=== PATIENT | male | born 1950 | race Caucasian/White ===

== ENCOUNTER → 2018-03-29 | Outpatient (CLI) | payer OTHER | END | disposition home or self-care (01) | LOC: RAH 12:51 | PROVIDERS: ATTEND Neurological Surgery | DX: M47.812 Spondylosis without myelopathy or radiculopathy, cervical region (principal); M50.123 Cervical disc disorder at C6-C7 level with radiculopathy; M48.02 Spinal stenosis, cervical region; M25.78 Osteophyte, vertebrae; Z86.73 Personal history of transient ischemic attack (TIA), and cerebral infarction without residual deficits | CPT/HCPCS: 70551; 72141 ==

== ENCOUNTER → 2018-04-13 | Outpatient (CLI) | payer OTHER | END | disposition home or self-care (01) | LOC: RAH 09:32 | PROVIDERS: ATTEND Family Medicine | DX: G45.9 Transient cerebral ischemic attack, unspecified (principal); I10 Essential (primary) hypertension | CPT/HCPCS: 93306; 93880 ==

== ENCOUNTER 2018-07-05 05:58 | Day surgery (SDC) | payer OTHER ==
[2018-07-03 11:50] VITALS: BP 183/84
--- NOTE | 2018-07-03 12:05 | NUR ---
No Blood Products informed Dr Belle/Suma of no blood products
[2018-07-03 12:18] LABS: BASOPHILS % (AUTO) 0.7 % (0.0-5.0); LYMPHOCYTES % (AUTO) 23.2 % (21.0-51.0); MEAN CORPUSCULAR HGB CONC 34.7 g/dL (32.0-36.0); MEAN CORPUSCULAR VOLUME 92.2 fL (79-99); MONOCYTES % (AUTO) 8.2 % (3.0-13.0); NEUTROPHILS % (AUTO) 65.9 % (40.0-77.0); PLATELET COUNT (AUTO) 216 K/uL (130-400); RED BLOOD CELL COUNT(AUTO) 4.98 MIL/uL (4.50-6.20); RED CELL DISTRIBUTION WIDTH 12.9 % (11.0-15.5); WHITE BLOOD COUNT (AUTO) 7.6 K/uL (4.8-10.8)
[2018-07-03 12:32] LABS: CREATININE 0.9 mg/dL (0.5-1.5); POTASSIUM 4.6 mmol/L (3.5-5.1)
[2018-07-03 12:33] LABS: INR 0.99 (0.85-1.15); PARTIAL THROMBOPLASTIN TIME 29.5 SEC (26.3-35.5); PROTHROMBIN TIME 10.4 SEC (9.6-11.6)
[2018-07-03 12:41] LABS: APPEARANCE,URINE Clear (CLEAR); BILIRUBIN,URINE Negative (NEGATIVE); COLOR,URINE Yellow (YELLOW); GLUCOSE, URINE (UA) Negative (NEGATIVE); KETONES,URINE Negative (NEGATIVE); LEUKOCYTE ESTERASE ,URINE Negative (NEGATIVE); NITRATE,URINE Negative (NEGATIVE); OCCULT BLOOD,URINE Negative (NEGATIVE); PROTEIN,URINE Negative (NEGATIVE)
--- NOTE | 2018-07-03 13:00 | NUR ---
Instructions I called patient to let him know he forgot his yellow day patient pre instructions, he stated that he understands to not have anything after midnight night before, no acholic beverages for 24 hours before, take a shower before he comes and to take his medication on his schedule...
[2018-07-05] VITALS (18 sets, daily range): BP systolic 149–184; BP diastolic 65–101
[~2018-07-05] VITALS: Ht 185.4 cm; Wt 116.8 kg
[~2018-07-05 05:58] MED LIST: ASPI-555 PO; ATOR10TA69 PO; LOSA100T58 PO
[2018-07-05] MEDS ORDERED: SODIUM CHLORIDE 0.9% 1000ML 1,000 ML IV ONE (06:20)
[2018-07-05] MEDS ORDERED: LIDOCAINE HCL 2% 20ML ONE (09:58)
[2018-07-05] MEDS ORDERED: IOHEXOL 350 MG/ML 100ML INFUS..BTL IV ONE (09:58)
[2018-07-05] MEDS ORDERED: NITROGLYCERIN 5 MG/ML 10 ML VIAL IV ONE (09:58)
[2018-07-05] MEDS ORDERED: IOHEXOL-350 50ML VIAL IV ONE ×2 (09:58→10:41)
[2018-07-05] MEDS ORDERED: LABETALOL 20 MG/4 ML DISP.SYRIN IV ONE (10:27)
[2018-07-05] MEDS ORDERED: MIDAZOLAM HCL 1 MG/ML 2ML VIAL ONE (10:30)
[2018-07-05] MEDS ORDERED: SODIUM CHLORIDE 0.9% 1000ML 1,000 ML IV SCH ×2 (10:56→11:17)
--- NOTE | 2018-07-05 13:56 | NUR ---
At Dr. Belle's request, 07/20/18 appointment canceled and pt rescheduled for follow-up appointment on 08/14/18 at 10:[address] Belle wanted to give pt the opportunity to have his surgery 1st.
--- NOTE | 2018-07-05 14:30 | NUR ---
Pt's blood pressure went from 149/73 at 13:00 to 173/87. quality control lab tech called and Dr. Belle notified of pt's increase in blood pressure. Dr. Belle gave orders for 50 mg of Losartan to be given PO now.
[2018-07-05] MEDS ORDERED: LOSARTAN 50 MG TABLET PO SCH (14:45)
--- NOTE | 2018-07-05 15:00 | NUR ---
Spoke to Dr. Belle directly in regards to when pt was clear to go home or to see if he wanted to put any parameters on an acceptable blood pressure as pt was due to go home at 15:00 prior to elevated blood pressure. Dr. Belle stated he had another pt to see, but that he would give some time for the Losartan to work and may consider writing a prescription .
--- NOTE | 2018-07-05 16:00 | NUR ---
About an hour has passed since pt received Losartan. Pt's blood pressure now: 149/93. Pt anxious to go home and reports back pain is getting bad. Attempted to page Dr. Belle for back pain and now for blood pressure with no return calls.
--- NOTE | 2018-07-05 16:15 | NUR ---
Pt reports severe lower back pain. Dr. Belle paged twice prior to reaching [facility] without any return of call. Requested Tylenol with Codeine for pt's back pain. Orders given.
[2018-07-05] MEDS ORDERED: ACETAMINOPHEN-CODEINE 300/30MG TAB ONE (16:18)
--- NOTE | 2018-07-05 17:15 | NUR ---
Pt reports relief of back pain. Blood pressure currently 158/84. Now pain at scale of 2 to 3. Pt very anxious to go home. Still unable to reach Dr. Belle. Will continue to reach him. Addendum: 07/05/18 at 1851 by NIRAJ HERNANDES RN RN JATINDER Huston, day camp unit leader was made aware at this time at 17:15 that I have unable to reach Dr. Belle.
[2018-07-05] MEDS ORDERED: ACETAMINOPHEN-CODEINE 300/30MG TAB PO ONE (17:20)
--- NOTE | 2018-07-05 17:20 | NUR ---
Dr. Belle reached. Current blood pressure reported to Dr. Belle. Dr Belle was informed that pt was taking 100 mg of Losartan in the evening. Dr. Belle gave instructions to tell pt to take blood pressure medication in the morning and not at night. Pt given thorough instructions on when to take Losartan so that the maximum benefits would occur during the day. Pt and spouse verbalized understanding.
--- NOTE | 2018-07-05 17:35 | NUR ---
After IV removal, PT was instructed to watch their IV site for any signs of bleeding. As pt was getting dressed, pt noticed that IV was swelling up. Large hematoma noted, firm pressure applied for 10 mins. Pressure dressing applied with gauze and Kerlix. Pt instructed to watch for further signs of bleeding. Pt also instructed to loosen bandage if became to tight or developed signs of decreased circulation, such as numbness, tingling or color change.
--- NOTE | 2018-07-05 17:45 | NUR ---
Pt discharged home. Tolerating fluids, solid food well, ambulating well. Denies any nausea, dizziness, or severe pain. Site to right groin remains soft, non-tender with no signs of bleeding. Pt reminded of emergency and routine care of groin site. Pt reminded to start taking Losartan in the morning. Pt and denies any further questions at this time.
--- NOTE | 2018-07-05 18:43 | NUR ---
JATINDER Huston, community marketing coordinator notified that I was tanvir Addendum: 07/05/18 at 1851 by NIRAJ HERNANDES RN RN Please disregard, note, entered in wrong time.
== END 2018-07-05 17:45 | disposition home or self-care (01) ==
LOC: DAH 05:58
PROVIDERS: ATTEND Internal Medicine Cardiovascular Disease
DX: I25.10 Atherosclerotic heart disease of native coronary artery without angina pectoris (principal); I47.2 Ventricular tachycardia; I48.91 Unspecified atrial fibrillation; G47.30 Sleep apnea, unspecified; G47.33 Obstructive sleep apnea (adult) (pediatric); Z68.35 Body mass index [BMI] 35.0-35.9, adult; I11.0 Hypertensive heart disease with heart failure; Z86.73 Personal history of transient ischemic attack (TIA), and cerebral infarction without residual deficits; E78.5 Hyperlipidemia, unspecified; Z98.890 Other specified postprocedural states; Z79.899 Other long term (current) drug therapy; Z82.49 Family history of ischemic heart disease and other diseases of the circulatory system; Z88.8 Allergy status to other drugs, medicaments and biological substances; Z79.01 Long term (current) use of anticoagulants
CPT/HCPCS: 36415; 71045; 80048; 81003; 85025; 85610; 85730; 93005; 93458; A4606; C1760; C1894; J1644; J2250; J3490 ×2; J7030; Q9965; Q9967 ×2; 99156; 99157

== ENCOUNTER 2018-08-21 05:58 | Observation (INO) | payer OTHER ==
[2018-08-17 09:44] LABS: BASOPHILS % (AUTO) 0.9 % (0.0-5.0); EOSINOPHILS % (AUTO) 3.2 % (0.0-8.0); HEMATOCRIT 44.9 % (42-54); LYMPHOCYTES % (AUTO) 21.8 % (21.0-51.0); MEAN CORPUSCULAR HEMOGLOBIN 31.4 pg (27.0-33.0); MEAN CORPUSCULAR HGB CONC 34.2 g/dL (32.0-36.0); MEAN CORPUSCULAR VOLUME 91.7 fL (79-99); MONOCYTES % (AUTO) 7.8 % (3.0-13.0); NEUTROPHILS % (AUTO) 66.3 % (40.0-77.0); PLATELET COUNT (AUTO) 210 K/uL (130-400); RED BLOOD CELL COUNT(AUTO) 4.89 MIL/uL (4.50-6.20); WHITE BLOOD COUNT (AUTO) 6.7 K/uL (4.8-10.8)
[2018-08-17 09:57] LABS: CREATININE 0.9 mg/dL (0.5-1.5); POTASSIUM 4.5 mmol/L (3.5-5.1)
[2018-08-17 10:08] VITALS: BP 161/79
--- NOTE | 2018-08-17 10:36 | NUR ---
NOTE DR HILLS HAS BEEN MADE OF PATIENTS REFUSAL OF BLOOD AND BLOOD PRODUCTS. NO FURTHER ORDERS
--- NOTE | 2018-08-20 13:00 | NUR ---
CLARIFICATION ON H&P/ORDERS DR. REINIER URBAN STAFF NOTIFIED THAT PT'S H&P STATES LUMBAR LAMINECTOMY L4,L5, S1, ORDERS STATES L4, L5 ONLY. PER DR. REINIER URBAN WILL MAKE CORRECTION DOS, FLAG H&P.
[~2018-08-21] VITALS: Ht 185.4 cm; Wt 117.1 kg
[2018-08-21] VITALS (19 sets, daily range): BP systolic 133–174; BP diastolic 64–92
[~2018-08-21 05:58] MED LIST changes: -LOSA100T58 PO; +LOSA25TA41 PO
[2018-08-21] MEDS ORDERED: BUPIVACAINE/EPI/PF 0.25% 50 ML VIAL ONE (06:35)
[2018-08-21] MEDS ORDERED: THROMBIN-JMI 20000 UNIT KIT TP ONE (06:36)
[2018-08-21] MEDS ORDERED: DURAMORPH PF1 MG/ML 10ML AMP IV ONE (06:36)
[2018-08-21] MEDS ORDERED: BACITRACIN 50,000 UNIT VIAL ONE (06:36)
[2018-08-21] MEDS ORDERED: LACTATED RINGERS 1000ML 1,000 ML IV ONE (06:47)
[2018-08-21] MEDS: CEFAZOLIN SODIUM 1 GM VIAL IVP PRN ×2 (07:20→09:23)
[2018-08-21] MEDS ORDERED: LIDOCAINE PF 2% 5ML ABBOJECT ONE (07:57)
[2018-08-21] MEDS ORDERED: SUCCINYLCHOLINE 200MG/10ML SYR ONE (07:57)
[2018-08-21] MEDS ORDERED: GLYCOPYRROLATE 1 MG/5 ML SYRINGE ONE (07:58)
[2018-08-21] MEDS ORDERED: NEOSTIGMINE 5MG/5ML SYR IV ONE (07:58)
[2018-08-21] MEDS ORDERED: PROPOFOL 10 MG/ML 20ML VIAL IV ONE (07:58)
[2018-08-21] MEDS ORDERED: MIDAZOLAM HCL 1 MG/ML 2ML VIAL ONE (07:58)
[2018-08-21] MEDS ORDERED: DEXAMETHASONE SOD PHOSPHATE 10MG/ML 1ML VIAL ONE (07:58)
[2018-08-21] MEDS ORDERED: ONDANSETRON HCL 4 MG/2 ML VIAL ONE (07:59)
[2018-08-21] MEDS ORDERED: FENTANYL CITRATE PF 50 MCG/1 ML 2ML VIAL ONE ×3 (07:59→11:07)
[2018-08-21] MEDS ORDERED: ROCURONIUM 10MG/1ML SYR 10 MG/ML ML ONE (07:59)
[2018-08-21] MEDS ORDERED: LIDOCAINE HCL 4% LTA SOL 4 ML VIAL ONE (08:02)
[2018-08-21] MEDS ORDERED: EPHEDRINE SULFATE 50 MG/ML AMPULE ONE (08:10)
[2018-08-21] MEDS ORDERED: METOCLOPRAMIDE 10 MG/2 ML VIAL ONE (09:36)
[2018-08-21] MEDS ORDERED: ESMOLOL HCL 10 MG/ML 10 ML VIAL ONE (09:39)
[2018-08-21] MEDS ORDERED: MORPHINE SULFATE 2 MG/ML 1ML SYG IVP PRN (12:00)
[2018-08-21] MEDS ORDERED: HYDROCODONE/ACETAMINOPHEN 5/325 MG TAB PO PRN (12:00)
[2018-08-21] MEDS ORDERED: PROMETHAZINE HCL 25 MG/ML 1ML AMPULE IM PRN (12:00)
[2018-08-21] MEDS ORDERED: SODIUM CHLORIDE 0.9% 10 ML VIAL IVP PRN (12:00)
[2018-08-21] MEDS ORDERED: MEPERIDINE-PF 25 MG/ML SYG ONE (12:41)
--- NOTE | 2018-08-21 13:10 | NUR ---
POST SURGERY PATIENT RECEIVED FROM PACU VIA HOSPITAL BED IN STABLE CONDITION. ORIENTED TO ROOM AND USE OF CALL LIGHT. BED IS IN LOWEST POSITION AND LOCKED. HE IS FULLY AWAKE AND IN NO APPARENT DISTRESS. POST OP V/S INITIATED. DRESSING TO LOWER BACK IS DRY AND INTACT. TIGIST DRAIN IS IN PLACE AND NOT COMPRESSED. WILL COMPRESS AT 1600 PER MD ORDERS. WILL CONTINUE TO MONITOR.
[2018-08-21] MEDS: DEXAMETHASONE SOD PHOSPHATE 4 MG/ML 1ML VIAL IVP SCH ×2 (13:38→18:50)
[2018-08-21] MEDS: LACTATED RINGERS 1000ML 1,000 ML IV SCH (13:38)
[2018-08-21] MEDS ORDERED: CEFAZOLIN SODIUM 1 GM VIAL IVP SCH (17:00)
[2018-08-21] MEDS ORDERED: DiphenhydrAMINE HCL 50 MG/ML VIAL IV PRN (20:00)
[2018-08-21] MEDS ORDERED: ATORVASTATIN CALCIUM 10 MG TABLET PO SCH (21:00)
[2018-08-21] MEDS ORDERED: ASPIRIN 81MG TAB.CHEW PO SCH (21:00)
[2018-08-22] MEDS: DEXAMETHASONE SOD PHOSPHATE 4 MG/ML 1ML VIAL IVP SCH (00:29)
[2018-08-22] MEDS: LACTATED RINGERS 1000ML 1,000 ML IV SCH (01:02)
[2018-08-22 03:42] VITALS: BP 126/73
[2018-08-22 07:52] VITALS: BP 142/72
[2018-08-22] MEDS ORDERED: LOSARTAN 50 MG TABLET PO SCH (09:00)
--- NOTE | 2018-08-22 10:30 | NUR ---
DISCHARGE DISCHARGE TEACHING DONE WITH PATIENT USING TEACHBACK METHOD, VERBALIZED UNDERSTANDING. NO NOTED SOB OR DISTRESS. PT AWARE OF NEW PRESCRIPTION FOR TRAMADOL, VERBALIZED UNDERSTANDING OF ADMINISTRATION. PT AWARE OF DR. HILLS APPOINTMENT AND STAPLE REMOVAL KIT GIVEN TO PATIENT TO TAKE TO APPOINTMENT. TIGIST REMOVED, CATH TIP INTACT, MEASURING 16CM. INCISION AND DRESSING CARE INSTRUCTIONS REVIEWED WITH PATIENT, VERBALIZED UNDERSTANDING. IV REMOVED, CATH TIP INTACT.PENDING TO BE TRANSFERRED OUT VIA PRIVATE VEHICLE.
== END 2018-08-22 11:08 | disposition home or self-care (01) ==
LOC: DAH 05:58 → DAHIP 05:59 → 4AH 13:04
PROVIDERS: ADMIT Neurological Surgery; ATTEND Neurological Surgery
DX: M48.07 Spinal stenosis, lumbosacral region (principal); G47.30 Sleep apnea, unspecified; I47.2 Ventricular tachycardia; M25.78 Osteophyte, vertebrae; M54.30 Sciatica, unspecified side; G47.10 Hypersomnia, unspecified; I11.9 Hypertensive heart disease without heart failure; G47.33 Obstructive sleep apnea (adult) (pediatric); E78.5 Hyperlipidemia, unspecified; Z82.49 Family history of ischemic heart disease and other diseases of the circulatory system; Z88.8 Allergy status to other drugs, medicaments and biological substances; Z86.73 Personal history of transient ischemic attack (TIA), and cerebral infarction without residual deficits; Z79.899 Other long term (current) drug therapy
CPT/HCPCS: 36415; 63047; 63048; 72020; 80048; 85025; 96374; 96375 ×2; 96376 ×2; A4218 ×2; A4344; A4510; A4649 ×4; G0378 ×29; J0330; J0690 ×2; J1100 ×4; J2001; J2175; J2250; J2274; J2405; J2704; J2710; J2765; J3010 ×3; J3490 ×4; J7030; J7120 ×3

== ENCOUNTER → 2022-01-20 | Outpatient (CLI) | payer OTHER ==
[~2022-01-20] MED LIST changes: -ASPI-555 PO; +ASPI-556 PO
== END | disposition home or self-care (01) ==
LOC: RAH 13:28
PROVIDERS: ATTEND Family Medicine
DX: M51.17 Intervertebral disc disorders with radiculopathy, lumbosacral region (principal); M48.061 Spinal stenosis, lumbar region without neurogenic claudication
CPT/HCPCS: 72148

== ENCOUNTER 2022-04-11 09:00 | Observation (INO) | payer OTHER ==
[~2022-04-11] VITALS: Ht 182.9 cm; Wt 114.7 kg
[2022-04-11 10:19] VITALS: BP 140/80
[2022-04-11] MEDS ORDERED: LOSA100T58 PO (10:35)
[2022-04-12] VITALS (26 sets, daily range): BP systolic 109–152; BP diastolic 49–81
[2022-04-12] MEDS ORDERED: CEFAZOLIN SODIUM 1 GM VIAL ONE ×2 (04:40→11:01)
[2022-04-12] MEDS ORDERED: BUPIVACAINE/EPI/PF 0.25% 10ML VIAL IJ ONE ×2 (04:40→05:29)
[2022-04-12] MEDS ORDERED: MORPHINE PF 100MG/10ML AMP IV ONE (04:42)
[2022-04-12] MEDS ORDERED: THROMBIN-JMI 5000 UNIT/VIAL TP ONE (04:44)
[2022-04-12] MEDS ORDERED: BUPIVACAINE/PF 0.5% 30ML VIAL ONE (05:17)
[2022-04-12] MEDS ORDERED: BUPIVACAINE/EPI/PF 0.5% 30ML VIAL IJ ONE (05:29)
[2022-04-12] MEDS: CEFAZOLIN SODIUM 1 GM VIAL IVP SCH ×3 (06:00→11:30)
[2022-04-12] MEDS ORDERED: LACTATED RINGERS 1000ML 1,000 ML IV ONE (06:26)
[2022-04-12] MEDS ORDERED: LIDOCAINE PF 100MG/5ML (2%) SYRINGE 5ML ONE (06:55)
[2022-04-12] MEDS ORDERED: SUCCINYLCHOLINE CHLORIDE 20 MG/ML 10 ML VIAL ONE (06:55)
[2022-04-12] MEDS ORDERED: ROCURONIUM 10MG/1ML SYR 10 MG/ML ML ONE ×2 (06:56→07:43)
[2022-04-12] MEDS ORDERED: NEOSTIGMINE 5MG/5ML SYR IV ONE (06:56)
[2022-04-12] MEDS ORDERED: ONDANSETRON 4MG INJ ONE ×3 (06:56→12:24)
[2022-04-12] MEDS ORDERED: PROPOFOL 10 MG/ML 20ML VIAL IV ONE ×2 (06:56→06:57)
[2022-04-12] MEDS ORDERED: DEXAMETHASONE SOD PHOSPHATE 10MG/ML 1ML VIAL ONE ×2 (06:56→06:59)
[2022-04-12] MEDS ORDERED: MIDAZOLAM HCL 1 MG/ML 2ML VIAL ONE (06:56)
[2022-04-12] MEDS ORDERED: GLYCOPYRROLATE 1 MG/5 ML SYRINGE ONE (06:56)
[2022-04-12] MEDS ORDERED: FENTANYL CITRATE PF 50 MCG/1 ML 2ML VIAL ONE ×3 (06:57→11:06)
[2022-04-12] MEDS ORDERED: PHENYLEPHRINE HCL 10 MG/ML 1ML VIAL IV ONE (07:03)
[2022-04-12] MEDS: THROMBIN-JMI 5000 UNIT/VIAL TP SCH ×2 (07:30→08:15)
[2022-04-12] MEDS ORDERED: ARTIFICIAL TEARS 3.5 GM OINTMENT ONE (08:00)
[2022-04-12] MEDS ORDERED: OXYMETAZOLINE HCL SPRAY 15 ML BOTTLE ONE (08:00)
[2022-04-12] MEDS ORDERED: THROMBIN-JMI 5000 UNIT/VIAL TP SCH (08:00)
[2022-04-12] MEDS: DEXAMETHASONE SOD PHOSPHATE 4 MG/ML 1ML VIAL IVP SCH ×2 (12:00→18:21)
[2022-04-12] MEDS ORDERED: 0.9%NACL 10ML VIAL IVP PRN (12:00)
[2022-04-12] MEDS: LACTATED RINGERS 1000ML 1,000 ML IV SCH (12:00)
[2022-04-12] MEDS ORDERED: MORPHINE 2 MG SYG IVP PRN (12:00)
[2022-04-12] MEDS: CEFAZOLIN SODIUM 2 GM VIAL IVP SCH ×2 (12:00→21:15)
[2022-04-12] MEDS ORDERED: PROMETHAZINE HCL 25 MG/ML 1ML AMPULE IM PRN (12:00)
[2022-04-12] MEDS ORDERED: MEPERIDINE-PF 25 MG/ML SYG ONE (12:25)
[2022-04-12] MEDS ORDERED: KETOROLAC 15MG/ML VIAL (15MG/ML) ONE (12:25)
[2022-04-12] MEDS: HYDROCODONE/ACETAMINOPHEN 5/325 MG TAB PO PRN (18:23)
[2022-04-13] MEDS: LACTATED RINGERS 1000ML 1,000 ML IV SCH (01:04)
[2022-04-13] MEDS: DEXAMETHASONE SOD PHOSPHATE 4 MG/ML 1ML VIAL IVP SCH ×2 (01:06→06:24)
[2022-04-13 04:38] VITALS: BP 131/66
[2022-04-13] MEDS: CEFAZOLIN SODIUM 2 GM VIAL IVP SCH (06:24)
[2022-04-13 07:50] VITALS: BP 134/72
[2022-04-13] MEDS ORDERED: LOSARTAN 100 MG TABLET PO SCH (09:00)
[2022-04-13] MEDS: HYDROCODONE/ACETAMINOPHEN 5/325 MG TAB PO PRN (09:05)
== END 2022-04-13 11:18 | disposition home or self-care (01) ==
LOC: DAHIP 04-12 05:59 → 4CH 04-12 12:52
PROVIDERS: ADMIT Neurological Surgery; ATTEND Neurological Surgery
DX: M48.061 Spinal stenosis, lumbar region without neurogenic claudication (principal); Z20.822 Contact with and (suspected) exposure to COVID-19; M51.17 Intervertebral disc disorders with radiculopathy, lumbosacral region; I10 Essential (primary) hypertension; G47.30 Sleep apnea, unspecified; M25.78 Osteophyte, vertebrae; M48.07 Spinal stenosis, lumbosacral region; M51.27 Other intervertebral disc displacement, lumbosacral region; M77.9 Enthesopathy, unspecified; Z85.828 Personal history of other malignant neoplasm of skin; Z86.73 Personal history of transient ischemic attack (TIA), and cerebral infarction without residual deficits; Z79.899 Other long term (current) drug therapy; Z98.890 Other specified postprocedural states
CPT/HCPCS: 87426; 71045; 63047; 96374; 96375; 72020; 96376; A6260; G0378 ×22; G0379; A4663; J7120 ×2; A4649 ×3; A4344; J3010 ×3; J0690 ×5; J3490 ×6; J1100 ×5; J2710; J0330; J2001; J2250; J2704 ×2; J2274; J2405 ×3; J2175; J1885; J2370; A4215; A4223; A4222; A4221; A4600

== ENCOUNTER → 2022-07-15 | Outpatient (CLI) | payer OTHER ==
[~2022-07-15] MED LIST changes: -ASPI-556 PO; -ATOR10TA69 PO; +LOSA100T58 PO; -LOSA25TA41 PO
[2022-07-15 12:57] LABS: CREATININE 1.1 mg/dL (0.5-1.5)
== END | disposition home or self-care (01) ==
LOC: LAB 12:13
PROVIDERS: ATTEND Neurological Surgery
DX: M54.16 Radiculopathy, lumbar region (principal)
CPT/HCPCS: 36415; 82565; 84520

== ENCOUNTER → 2022-07-27 | Outpatient (CLI) | payer OTHER ==
[~2022-07-27] MED LIST changes: +GADOTERATE MEGLUMINE 10 MMOL/20 ML VIAL IV ONE
== END | disposition home or self-care (01) ==
LOC: RAH 15:05
PROVIDERS: ATTEND Neurological Surgery
DX: M54.16 Radiculopathy, lumbar region (principal)
CPT/HCPCS: 72158; A9575

== ENCOUNTER → 2023-11-28 | Outpatient (CLI) | payer OTHER ==
[~2023-11-28] MED LIST changes: -GADOTERATE MEGLUMINE 10 MMOL/20 ML VIAL IV ONE; -LOSA100T58 PO; +LOSA100T59 PO
== END | disposition home or self-care (01) ==
LOC: RAH 10:48
PROVIDERS: ATTEND Family Medicine Sports Medicine
DX: M47.816 Spondylosis without myelopathy or radiculopathy, lumbar region (principal); M48.07 Spinal stenosis, lumbosacral region; M51.27 Other intervertebral disc displacement, lumbosacral region; Z98.890 Other specified postprocedural states
CPT/HCPCS: 72148